=== PATIENT | male | born 1975 | race African-American/Black ===

== ENCOUNTER 2018-12-24 03:03 | Emergency (ER) | payer OTHER ==
[~2018-12-24] VITALS: Ht 167.6 cm; Wt 81.7 kg
[2018-12-24 05:24] VITALS: BP 104/62
== END 2018-12-24 05:28 | disposition home or self-care (01) ==
LOC: ER 03:03
DX: S89.92XA Unspecified injury of left lower leg, initial encounter (principal); F17.210 Nicotine dependence, cigarettes, uncomplicated; W22.8XXA Striking against or struck by other objects, initial encounter; Y93.89 Activity, other specified; Y92.89 Other specified places as the place of occurrence of the external cause; Y99.8 Other external cause status